=== PATIENT | female | born 1985 | race Caucasian/White ===

== ENCOUNTER 2018-11-29 15:22 | Emergency (ER) | payer SELFPAY ==
--- NOTE | 2018-11-29 15:50 | RAD ---
EXAM: Right great toe, 3 views. HISTORY: Trauma. COMPARISON: None. FINDINGS: 3 views of the right great toe are obtained. There is no fracture, dislocation or subluxation. No radiodense foreign body is seen. IMPRESSION: No acute osseous finding. Electronically signed by: Shona Barboza MD (11/29/2018 3:47 PM) [facility] [place]
[2018-11-29] MEDS ORDERED: LIDOCAINE 1% Multi-Dose 20 ML VIAL. IJ ONE (16:00)
[2018-11-29] MEDS ORDERED: DIPHTH,PERTUSS(ACELL),TET TOX 0.5 ML DISP.SYRIN. VAX IM ONE (16:00)
[2018-11-29] MEDS ORDERED: MELO7.5T29 PO (16:07)
[2018-11-29] MEDS ORDERED: CEPH-264 PO (16:07)
--- NOTE | 2018-11-29 16:08 | PHYS DOC ---
Past History Smoking: Quit Less Than 1 Year Alcohol Use: None Drug Use: None Adult General Chief Complaint Chief Complaint: TOE PROBLEM HPI HPI Patient is a 33-year-old female presents with right great toe injury. Proximately 30 minutes prior to arrival she was getting out of the bath/shower, she slipped on the tile, and her toe went under the door. This flipped the toenail back. There was bleeding. She has been able to walk on it. Reports that the pain is mild to moderate. She is uncertain as to when her last tetanus vaccine was. Increased pain with movement and touch. No new numbness or tingling. She has taken no medicine for the discomfort.[] Review of Systems Review of Systems Constitutional: Denies fever or chills [] Eyes: Denies change in visual acuity, redness, or eye pain [] HENT: Denies nasal congestion or sore throat [] Respiratory: Denies cough or shortness of breath [] Cardiovascular: No chest pain or palpitations[] GI: Denies abdominal pain, nausea, vomiting, bloody stools or diarrhea [] : Denies dysuria or hematuria [] Musculoskeletal: Denies back pain, see history of present illness[] Integument: Denies rash or skin lesions [] Neurologic: Denies headache, focal weakness or sensory changes [] Endocrine: Denies polyuria or polydipsia [] All other systems were reviewed and found to be within normal limits, except as documented in this note. Physical Exam Physical Exam Constitutional: Well developed, well nourished, no acute distress, non-toxic appearance. [] HENT: Normocephalic, atraumatic, bilateral external ears normal, oropharynx moist, no oral exudates, nose normal. [] Eyes: PERRLA, EOMI, conjunctiva normal, no discharge. [] Neck: Normal range of motion, no tenderness, supple, no stridor. [] Cardiovascular:Heart rate is tachycardic with a regular rhythm, no murmur [] Lungs & Thorax: Bilateral breath sounds clear to auscultation [] Abdomen: Bowel sounds normal, soft, no tenderness, no masses, no pulsatile masses. [] Skin: Warm, dry, no erythema, no rash. [] Back: No tenderness, no CVA tenderness. [] Extremities: Right great toe has bleeding around the edge of the nail bed, the lateral aspect of the proximal nail has been pulled out of the nail fold. There is tenderness to palpation. Patient is neurovascularly intact. A joint proximally was evaluated and was normal. No other injuries to the right foot. The other 3 extremities show: No tenderness, no cyanosis, no clubbing, ROM intact, no edema. [] Neurologic: Alert and oriented X 3, normal motor function, normal sensory function, no focal deficits noted. [] Psychologic: Affect normal, judgement normal, mood normal. [] EKG EKG [] Radiology/Procedures Radiology/Procedures PROCEDURE: TOES RIGHT EXAM: Right great toe, 3 views. HISTORY: Trauma. COMPARISON: None. FINDINGS: 3 views of the right great toe are obtained. There is no fracture, dislocation or subluxation. No radiodense foreign body is seen. IMPRESSION: No acute osseous finding.[] Course & Med Decision Making Course & Med Decision Making Pertinent Labs and Imaging studies reviewed. (See chart for details) ED course: Patient arrived, was placed in bed, and tolerated exam well. Patient was offered pain medicine multiple times and she deferred. Her toe was prepped and draped in the usual sterile manner. She was given a digital block and the toe nail was replaced in the nail fold and a single 5-0 suture was placed to assist with the toenail remitting in the nail fold. She tolerated the procedure well. She was placed in a postop shoe. She was distally neurovascularly intact after the procedure. She was discharged in improved condition after her tetanus vaccine status was updated. Tony decision making: There is no evidence of a fracture or dislocation. Since she was not wearing shoes, we will cover with a short course of antibiotic therapy at this time. We'll have patient follow-up with her primary doctor in 2 days for a wound check.[] Dragon Disclaimer Dragon Disclaimer This electronic medical record was generated, in whole or in part, using a voice recognition dictation system. Departure Departure: Impression: Primary Impression: Injury of right great toe Disposition: 01 HOME, SELF-CARE Condition: IMPROVED Referrals: DORENE SALGADO (PCP) Follow-up in 2 days for a wound check Patient Instructions: Crush Injury, Fingers or Toes, Nail Avulsion Injury Additional Instructions: Follow-up with your regular doctor in 2 days for a wound check. Have the suture removed in 7-10 days. Return to the ER if increasing redness, fever of more than 101�, purulent drainage, or any other concerns. Scripts Meloxicam (MELOXICAM) 7.5 Mg Tablet 7.5 MG PO DAILY for PAIN, #20 TAB Prov: DARA DALY DO 11/29/18 Cephalexin (KEFLEX) 500 Mg Capsule 500 MG PO TID for toe injury for 5 Days, #15 CAP Prov: DARA DALY DO 11/29/18 Problem Qualifiers Primary Impression: Injury of right great toe Encounter type: initial encounter Qualified Codes: S99.921A - Unspecified injury of right foot, initial encounter DARA DALY DO Nov 29, 2018 16:08
[2018-11-29 16:30] VITALS: BP 160/100
== END 2018-11-29 16:33 | disposition home or self-care (01) ==
LOC: ER 15:22
DX: S99.921A Unspecified injury of right foot, initial encounter (principal); W22.8XXA Striking against or struck by other objects, initial encounter; Y93.89 Activity, other specified; Y92.89 Other specified places as the place of occurrence of the external cause; Y99.8 Other external cause status; Z87.891 Personal history of nicotine dependence
CPT/HCPCS: 11760; 73660; 90471; 90715; 99284-25

== ENCOUNTER → 2019-10-08 | Outpatient (CLI) | payer MEDICAID ==
[~2019-10-08] MED LIST: CEPH-264 PO; MELO7.5T29 PO
--- NOTE | 2019-10-08 13:53 | RAD ---
PA chest x-ray and 2 views the bilateral ribs without comparison for costochondritis. FINDINGS: The lungs are clear. Heart size within normal limits. No significant soft tissue or osseous abnormalities are seen. No rib fractures are identified. IMPRESSION: 1. No acute cardiopulmonary abnormality. 2. No radiographically discernible rib fractures. Electronically signed by: Alfred Sanders MD (10/08/2019 1:50 PM) [id number]
== END | disposition home or self-care (01) ==
LOC: DXRAD 11:38
PROVIDERS: ATTEND Physician Assistant Medical
DX: M94.0 Chondrocostal junction syndrome [Tietze] (principal)
CPT/HCPCS: 71111

== ENCOUNTER 2019-11-21 10:17 | Emergency (ER) | payer MEDICAID ==
[~2019-11-21] VITALS: Ht 165.1 cm; Wt 86.4 kg
--- NOTE | 2019-11-21 10:33 | PHYS DOC ---
Past History Past Medical History: Depression, Migraines Past Surgical History: No Surgical History Smoking: Cigarettes, Less than 1pk/day, Quit Less Than 1 Year Alcohol Use: Occasionally Drug Use: None General Adult EDM: Chief Complaint: Abnormal vaginal bleeding HPI: HPI: 34-year-old female presents with report of abnormal vaginal bleeding over the past 2 days in addition to left lower pelvic pain. Denies . Reports last menstrual period was on 11/10/2019. Denies dysuria. Denies trauma. Denies vaginal bleeding. Denies concern for STDs. Denies rash. Patient also reports she has noticed some abnormal bruising over a longer period of time. Review of Systems: Review of Systems: Constitutional: Denies fever or chills Eyes: Denies redness or eye pain HENT: Denies nasal congestion or sore throat Respiratory: Denies cough or shortness of breath Cardiovascular: Denies chest pain or palpitations GI: Denies abdominal pain, nausea, or vomiting /[facility]ST[facility] HEMMER: Denies dysuria or hematuria; reports pelvic pain and abnormal vaginal b leeding/ "spotting" Musculoskeletal: Denies back pain or joint pain Integument: Denies rash or skin lesions Neurologic: Denies headache, focal weakness or sensory changes Complete systems were reviewed and found to be within normal limits, except as documented in this note. Allergies: Allergies: Allergies Coded Allergies Type Severity Reaction Last Updated Verified No Known Drug Allergies 11/29/18 No Physical Exam: PE: Constitutional: Well developed, well nourished, no acute distress, non-toxic appearance HENT: Normocephalic, atraumati Eyes: Conjunctiva normal, no discharge Neck: Normal range of motion, supple Lungs & Thorax: No respiratory distress, equal chest rise and fall Abdomen: Soft, no tenderness, no guarding/rebound tenderness/distention Pelvic exam: External genitalia normal, old blood noted in vaginal vault, no CMT, left adnexal tenderness on palpation, Skin: Warm, dry, no erythema, scattered healing ecchymosis to left upper abdominal wall and right forearm Back: No tenderness, no CVA tenderness Extremities: No tenderness, ROM intact, no edema Neurologic: Alert and oriented X 3, no focal deficits noted Psychologic: Affect normal, judgment normal EKG: EKG: [] Radiology/Procedures: Radiology/Procedures: PROCEDURE: US PELVIS W/TV Pelvic ultrasound transabdominal and transvaginal: Reason for examination: Left adnexal tenderness. Irregular vaginal bleeding. Transabdominally, the uterus measures 8.6 x 5.0 x 7.2 cm in greatest dimensions with no focal lesion seen. The ovaries are not identified transabdominally. Transvaginally, the uterus appears homogeneous. Endometrium is not abnormally thickened at 3 mm. The right ovary measures 2.3 x 1.7 x 2.6 cm in greatest dimension and contains a 1.5 cm cyst/follicle. There is normal vascular flow. The left ovary measures 2.2 x 1.4 x 2.4 cm in greatest dimension and shows normal vascular flow. No left ovarian masses seen. No free fluid or adnexal masses are present. IMPRESSION: Small 1.5 cm cyst/follicle in the right ovary. No other focal abnormality seen in the pelvis. Electronically signed by: Leslie Gee MD (11/21/2019 12:08 PM) [id number] Course & Med Decision Making: Course & Med Decision Making Pertinent Labs and Imaging studies reviewed. (See chart for details) Patient presents with left adnexal tenderness with associated spotting/abnormal vaginal bleeding and reported increased bruising. Labs obtained and posted to chart. Upreg negative. H/H stable. Coags WNL. Pelvic exam performed. Adnexal tenderness and some old blood noted in vaginal vault without other significant finding. Chlamydia/Gonorrhea cultures pending. Empiric treatment provided. Wet mount with some issues with lab. Patient aware and declined repeat testing/pelvic exam. Pelvic ultrasound without acute process. An incidental right ovarian cyst noted. Patient stable for discharge with outpatient follow-up with PCP/[facility] HEMMER. Discussed findings and plan with patient, who acknowledges understanding and agreement. Eduardo Disclaimer: Eduardo Disclaimer: This electronic medical record was generated, in whole or in part, using a voice recognition dictation system. Departure Departure: Impression: Primary Impression: Pelvic pain Additional Impressions: Abnormal vaginal bleeding Ecchymosis Disposition: 01 HOME/RESIDENCE PRIOR TO ADM Condition: STABLE Referrals: DORENE SALGADO (PCP) Patient Instructions: Abnormal Uterine Bleeding, Pelvic Pain, Female, [id number] Justification of Admission: Justification of Admission: Justification of Admission Dx: N/A LUIS VICENTE DO Nov 21, 2019 10:33
[2019-11-21] MEDS ORDERED: KETOROLAC 15 MG/ML VIAL. IVP ONE (11:00)
[2019-11-21] MEDS ORDERED: AZITHROMYCIN 250 MG TABLET. PO ONE (11:00)
[2019-11-21] MEDS ORDERED: IV NORMAL SALINE 1,000ML 1,000 ML IV ONE (11:00)
[2019-11-21] MEDS ORDERED: cefTRIAXone IM 250 MG VIAL IM ONE (11:00)
[2019-11-21 11:24] LABS: BASO # 0.1 x10^3/uL (0.0-0.2); BASO % 1 % (0-3); EOS # 0.1 x10^3/uL (0.0-0.7); EOS % 1 % (0-3); HEMATOCRIT 35.5 % (36.0-47.0); HEMOGLOBIN 11.7 g/dL (12.0-15.5); LYMPH % 24 % (24-48); MEAN CORPUSCULAR HEMOGLOBIN 25 pg (25-35); MEAN CORPUSCULAR HGB CONC 33 g/dL (31-37); MEAN CORPUSCULAR VOLUME 77 fL (79-100); MONO # 0.5 x10^3/uL (0.0-1.1); MONO % 6 % (0-9); NEUT # 5.9 x10^3uL (1.8-7.7); NEUT % 69 % (31-73); PLATELET COUNT 335 x10^3/uL (140-400); RED BLOOD COUNT 4.62 x10^6/uL (3.50-5.40); RED CELL DISTRIBUTION WIDTH 19.4 % (11.5-14.5); WHITE BLOOD COUNT 8.6 x10^3/uL (4.0-11.0)
[2019-11-21 12:08] LABS: BILIRUBIN,URINE NEG (NEG); CLARITY,URINE HAZY; COLOR,URINE YELLOW; GLUCOSE,URINE NEG (NEG)
[2019-11-21 12:09] LABS: BACTERIA,URINE FEW /HPF (0-FEW); NITRITE,URINE NEG (NEG); SQUAMOUS EPITHELIAL CELL,UR MOD /LPF; UROBILINOGEN,URINE 0.2 mg/dL (0.2 mg/dL)
--- NOTE | 2019-11-21 12:11 | RAD ---
Pelvic ultrasound transabdominal and transvaginal: Reason for examination: Left adnexal tenderness. Irregular vaginal bleeding. Transabdominally, the uterus measures 8.6 x 5.0 x 7.2 cm in greatest dimensions with no focal lesion seen. The ovaries are not identified transabdominally. Transvaginally, the uterus appears homogeneous. Endometrium is not abnormally thickened at 3 mm. The right ovary measures 2.3 x 1.7 x 2.6 cm in greatest dimension and contains a 1.5 cm cyst/follicle. There is normal vascular flow. The left ovary measures 2.2 x 1.4 x 2.4 cm in greatest dimension and shows normal vascular flow. No left ovarian masses seen. No free fluid or adnexal masses are present. IMPRESSION: Small 1.5 cm cyst/follicle in the right ovary. No other focal abnormality seen in the pelvis. Electronically signed by: Leslie Gee MD (11/21/2019 12:08 PM) [email or web address]
[2019-11-21 12:59] VITALS: BP 165/105
[2019-11-21 15:34] LABS: ALBUMIN 4.2 g/dL (3.4-5.0); ALBUMIN/GLOBULIN RATIO 1.2 (1.0-1.7); CREATININE 0.7 mg/dL (0.6-1.0); TOTAL BILIRUBIN 0.3 mg/dL (0.2-1.0); TOTAL PROTEIN 7.8 g/dL (6.4-8.2)
[2019-11-21 15:35] LABS: MAGNESIUM 2.2 mg/dL (1.8-2.4); POTASSIUM 4.4 mmol/L (3.5-5.1)
== END 2019-11-21 13:30 | disposition home or self-care (01) ==
LOC: ER 10:17
DX: S30.1XXA Contusion of abdominal wall, initial encounter (principal); S50.11XA Contusion of right forearm, initial encounter; N93.8 Other specified abnormal uterine and vaginal bleeding; G43.909 Migraine, unspecified, not intractable, without status migrainosus; F32.9 Major depressive disorder, single episode, unspecified; Z87.891 Personal history of nicotine dependence; X58.XXXA Exposure to other specified factors, initial encounter; Y93.89 Activity, other specified; Y92.89 Other specified places as the place of occurrence of the external cause; Y99.8 Other external cause status
CPT/HCPCS: 36415; 76830; 76856; 80053; 81001; 81025; 83735; 85025; 85610; 85730; 96361; 96372; 96374; 99284; J0456; J0696; J1885; J7030; Q0111; 87491; 87591

== ENCOUNTER → 2020-07-07 | Outpatient (CLI) | payer MEDICAID ==
--- NOTE | 2020-07-07 13:21 | RAD ---
EXAM: Pelvic sonogram. HISTORY: Dysmenorrhea. TECHNIQUE: Transabdominal sonographic imaging of the pelvis was performed. COMPARISON: None. FINDINGS: The uterus measures 9.9 x 6.5 x 4.9 cm. The endometrial stripe measures 3 mm thickness. The ovaries are normal in size and demonstrate normal blood flow. There is a 2.7 cm dominant right ovari an follicle/follicular cyst. There are additional small ovarian follicles. There is no pelvic free fl uid. The bladder is unremarkable. IMPRESSION: 1. 2.7 cm dominant right ovarian follicle/follicular cyst. 2. Otherwise, unremarkable pelvic sonogram. Electronically signed by: Shona Barboza MD (07/07/2020 1:19 PM) [email or web address]
== END ==
LOC: US 09:55
PROVIDERS: ATTEND Obstetrics & Gynecology
DX: N94.6 Dysmenorrhea, unspecified (principal); R14.0 Abdominal distension (gaseous)
CPT/HCPCS: 76856